=== PATIENT | male | born 1990 | race Caucasian/White ===

== ENCOUNTER 2017-05-19 11:55 | Outpatient (CLI) ==
--- NOTE | 2017-05-19 12:37 | DI ---
EXAM: Lumbar spine radiographs. HISTORY: Low back pain. COMPARISON: None available. TECHNIQUE: 5 views of the lumbar spine. FINDINGS: The normal curvature and alignment are maintained. Vertebral body and intervertebral disc heights are normal. No fracture or subluxation identified. Sacral arcuate lines are intact. Soft tissues are unremarkable. IMPRESSION: No acute abnormality of the lumbar spine.
--- NOTE | 2017-05-19 14:41 | DI ---
EXAM: Four views of the thoracic spine HISTORY: Back pain post fall. COMPARISON: None FINDINGS: Vertebral bodies demonstrate normal height and alignment. There is no lytic or blastic les ion. There is no acute compression fracture or subluxation. Soft tissues are unremarkable. IMPRESSION: No acute abnormality or compression fracture of the thoracic spine.
== END 2017-05-19 11:56 | disposition home or self-care (01) ==
LOC: RAD 11:55
PROVIDERS: ATTEND Physician Assistant Medical
DX: M54.6 Pain in thoracic spine (principal)